=== PATIENT | male | born 1995 | race Caucasian/White ===

== ENCOUNTER 2021-07-22 00:17 | Outpatient (CLI) | payer OTHER, SELFPAY ==
--- NOTE | 2021-07-22 | DI.MRI_ITS ---
Exam(s) MR LOWER JOINT RT WO EXAM: MR LOWER JOINT RT WO CLINICAL HISTORY: COMPLETE TEAR OF ANTERIOR CRUCIATE LIGAMENT RT KNEE, S83.511A. TECHNIQUE: Multiplanar multisequence MRI was performed. COMPARISON: No exams were available for comparison FINDINGS: BONES: There are areas of contusion in the proximal tibia predominantly posteriorly. JOINTS: Articular cartilage is unremarkable. There is a small joint effusion. TENDONS: Extensor mechanism: Unremarkable. Medial retinaculum: Unremarkable. Lateral retinaculum: Unremarkable. Popliteus: Unremarkable. MUSCLES: Unremarkable. MENISCI: The medial meniscus is unremarkable. The lateral meniscus is unremarkable. SOFT TISSUES: Unremarkable. LIGAMENTS: Anterior Cruciate: There is a torn ACL. Posterior Cruciate: Unremarkable. Medial Collateral:There is a small amount of fluid seen around the MCL. This may represent a sprain. Lateral Collateral: Unremarkable. OTHER: IMPRESSION: 1. Tear of the ACL. 2. MCL sprain. 3. No evidence of a meniscal tear. 4. Contusion involving the proximal tibia. 5. Small joint effusion. DATA REPOSITORY:
== END 2021-07-22 00:37 ==
PROVIDERS: Visit Provider Specialist
DX: S83.511A Sprain of anterior cruciate ligament of right knee, initial encounter (principal); S83.411A Sprain of medial collateral ligament of right knee, initial encounter; M25.461 Effusion, right knee
CPT/HCPCS: 73721

== ENCOUNTER 2024-08-01 17:46 | Outpatient (REF) | payer BC, SELFPAY | END 2024-08-01 17:47 | disposition home or self-care (01) | LOC: LBN 17:46 | PROVIDERS: Visit Provider Physician Assistant Medical | DX: L05.01 Pilonidal cyst with abscess (principal) | CPT/HCPCS: 87077; 87070; 87205 ==